=== PATIENT | female | born 1935 | race Caucasian/White ===

== ENCOUNTER 2018-01-27 16:46 | Emergency (ER) | payer MEDICARE, OTHER ==
[~2018-01-27 16:46] MED LIST: CRAN PO; CYAN250T PO; DILT180T12 PO; ESTR-6 PO; FERR324T4 PO; [UNRECOGNIZED DRUG - OTHER] PO
[2018-01-27] MEDS ORDERED: KETOROLAC TROMETHAMINE 30MG/ML ONE (17:27)
[2018-01-27] MEDS ORDERED: MORPHINE SULFATE 4 MG/1ML SYG ONE (17:28)
[2018-01-27] MEDS ORDERED: ONDANSETRON ODT 4 MG TAB ONE (17:28)
== END 2018-01-27 18:50 | disposition home or self-care (01) ==
LOC: EDH 16:46
DX: S70.01XA Contusion of right hip, initial encounter (principal); Z87.891 Personal history of nicotine dependence; W01.0XXA Fall on same level from slipping, tripping and stumbling without subsequent striking against object, initial encounter; Y93.89 Activity, other specified; Y92.89 Other specified places as the place of occurrence of the external cause; Y99.8 Other external cause status
CPT/HCPCS: 73502; 73552; 96372 ×2; 99284; J1885; J2270

== ENCOUNTER → 2018-08-22 | Outpatient (CLI) | payer MEDICARE, OTHER | END | disposition home or self-care (01) | LOC: RAH 06:45 | PROVIDERS: ATTEND Physical Medicine & Rehabilitation | DX: M48.02 Spinal stenosis, cervical region (principal); M47.892 Other spondylosis, cervical region; M25.78 Osteophyte, vertebrae | CPT/HCPCS: 72141 ==

== ENCOUNTER → 2018-09-06 | Outpatient (CLI) | payer MEDICARE, OTHER | END | disposition home or self-care (01) | LOC: RAH 12:13 | PROVIDERS: ATTEND Physical Medicine & Rehabilitation | DX: M47.896 Other spondylosis, lumbar region (principal); M51.36 Other intervertebral disc degeneration, lumbar region; M48.061 Spinal stenosis, lumbar region without neurogenic claudication | CPT/HCPCS: 72148 ==